=== PATIENT | female | born 1990 | race African-American/Black ===

== ENCOUNTER 2016-10-31 08:17 | Emergency (ER) | payer MEDICAID ==
[~2016-10-31] VITALS: Ht 157.5 cm; Wt 100.0 kg
[~2016-10-31 08:17] MED LIST: ALBU6.7H INH; DEPO150I IM; IBUP600 PO
[2016-10-31 08:19] VITALS: BP 144/81; PULSE 66; RESP 20; TEMP 97.7; O2SAT 100
--- NOTE | 2016-10-31 08:47 | PD ---
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) Social History Alcohol Use: No Tobacco Use: No Substance Use: Yes (marijuana) Allergies-Medications (Allergen,Severity, Reaction): Coded Allergies: Bee Sting (Verified Allergy, Severe, HIVES, 05/22/16) Rainey (Verified Allergy, Severe, RASH, THROAT SWELLING, 05/22/16) Latex (Verified Allergy, Severe, UNKNOWN, 05/22/16) Penicillin (Verified Allergy, Severe, UNKNOWN, 05/22/16) Wheat (Verified Allergy, Severe, RASH, 05/22/16) Reported Meds & Prescriptions Reported Meds & Active Scripts Active Motrin 600 Mg Tab (Ibuprofen) 600 Mg Tab 600 Mg PO Q6H PRN Depo-Provera Contraceptive (Medroxyprogesterone Acetate) 150 Mg/Ml Susp 150 Mg IM Q90D Proventil Hfa (Albuterol Sulfate) 6.7 Gm Aero 2 Puff INH Q6 * SHAKE WELL BEFORE USE * Data Data Last Documented VS Vital Signs Date Time Temp Pulse Resp B/P Pulse Ox O2 Delivery O2 Flow Rate FiO2 10/31/16 08:19 97.7 66 20 144/81 100 Room Air Ana Ashton Oct 31, 2016 08:47
--- NOTE | 2016-10-31 08:59 | PD ---
HPI Chief Complaint: Pain: Acute or Chronic Time Seen by Provider: 08:54 Travel History International Travel<30 days: No Contact w/Intl Traveler<30days: No Traveled to known affect area: No History of Present Illness HPI 26-year-old female presents to the emergency Department with complaint of right hip and right groin pain 3 days. Denies injury, straining, heavy lifting. Pain is worse when standing for a long time period that she was standing at the [employer] doing her work the other day and the pain was increasing. She denies pain at this time. Has not taken any medications or tried any treatments to relieve her symptoms. Denies paresthesias, loss of sensation, decreased range of motion, decreased strength to affected extremity. Denies fever, chills, nausea, vomiting. Allergies to bee sting, Rainey, latex, penicillin, wheat. Denies significant past medical history. No other modifying factors or associated signs and symptoms. History Past Medical Histgory LMP: OCTOBER 2016 Social History Alcohol Use: No Tobacco Use: No Allergies-Medications (Allergen,Severity, Reaction): Coded Allergies: Bee Sting (Verified Allergy, Severe, HIVES, 10/31/16) Rainey (Verified Allergy, Severe, RASH, THROAT SWELLING, 10/31/16) Latex (Verified Allergy, Severe, UNKNOWN, 10/31/16) Penicillin (Verified Allergy, Severe, UNKNOWN, 10/31/16) Wheat (Verified Allergy, Severe, RASH, 10/31/16) Reported Meds & Prescriptions Reported Meds & Active Scripts Active Review of Systems Except as stated in HPI: all other systems reviewed are Neg Physical Exam Narrative GENERAL: Well-nourished, well-developed female patient, in no acute distress; afebrile, nontoxic-appearing SKIN: Warm and dry. HEAD: Atraumatic. Normocephalic. EYES: Pupils equal and round. No scleral icterus. No injection or drainage. ENT: Mucosa pink and moist. Airway patent. NECK: Trachea midline. CARDIOVASCULAR: Regular rate. RESPIRATORY: No accessory muscle use. MUSCULOSKELETAL: Right hip with full range of motion; no erythema, edema, ecchymosis. No tenderness on abduction of the right hip. No Tenderness on palpation to the right hip or right groin area. No leg length discrepancy. Patient is ambulatory with a normal gait. Right lower extremity is supple and non-tense with 2+ pedal pulse and sensory intact and without erythema or edema. No cyanosis. No clubbing. No obvious deformities. NEUROLOGICAL: Awake and alert. Oriented 3. No obvious cranial nerve deficits. Motor grossly within normal limits. Normal speech. PSYCHIATRIC: Appropriate mood and affect; insight and judgment normal. Data Data Last Documented VS Vital Signs Date Time Temp Pulse Resp B/P Pulse Ox O2 Delivery O2 Flow Rate FiO2 10/31/16 08:19 97.7 66 20 144/81 100 Room Air [facility] Medical Screen Exam Complete: Yes Emergency Medical Condition: No Differential Diagnosis Hip pain, groin strain, medical clearance Narrative Course 26-year-old female with right hip pain/groin pain 3 days. No known injuries. Denies pain at this time. The right hip is with full range of motion and without tenderness on abduction. No leg length discrepancy. Right lower extremity is supple and non-tense with 2+ pedal pulses and sensory intact. Patient is ambulatory with a normal gait. Physical exam is unremarkable. Vital signs are stable and the patient is stable for outpatient follow-up and treatment. The patient has no urgent or emergent medical complaints. There is no emergent or urgent medical need at this time. I instructed the patient to follow up with their primary care provider. A medical screening exam was performed: At the time of evaluation the presenting medical condition was determined not to be of an emergent nature. The patient was given the option of receiving additional care, but declined. Patient was given options for additional community resources from which to obtain care. The Patient Has Been advised to seek medical attention for their presenting complaint. The patient has been advised to return to the ER at any time if an emergent condition develops. Primary Impression: Encounter for medical screening examination Condition: Stable Ana Ashton Oct 31, 2016 08:59 Condition: Stable Ana Ashton Oct 31, 2016 08:59
== END 2016-10-31 09:05 | disposition left against medical advice (07) ==
LOC: NEPB 08:17
DX: M25.551 Pain in right hip (principal)
CPT/HCPCS: 99281

== ENCOUNTER 2017-01-08 10:09 | Emergency (ER) | payer MEDICAID ==
[~2017-01-08] VITALS: Ht 157.5 cm; Wt 91.0 kg
[2017-01-08 10:12] VITALS: BP 132/85; PULSE 87; RESP 17; TEMP 97.8; O2SAT 98
--- NOTE | 2017-01-08 10:17 | PD ---
HPI . muscle spasm Chief Complaint: Back/ Neck Pain or Injury Time Seen by Provider: 10:17 Travel History International Travel<30 days: No Contact w/Intl Traveler<30days: No Traveled to known affect area: No History of Present Illness HPI 26-year-old female here with complaints of chronic back pain. Patient tells me that she has muscle spasms and is making it difficult to play with her 5 children. She reports chronic issues with her back and tells me that she was told she would need surgery. However she decided against surgical recommendations. She is here requesting medications for muscle spasms. She had a primary care provider in [place], but has been unable to follow up due to transportation issues. She denies any bowel or bladder dysfunction. She denies any saddle anesthesia. 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) Social History Alcohol Use: No Tobacco Use: No Substance Use: Yes (marijuana) Allergies-Medications (Allergen,Severity, Reaction): Coded Allergies: Bee Sting (Verified Allergy, Severe, HIVES, 01/08/17) Rainey (Verified Allergy, Severe, RASH, THROAT SWELLING, 01/08/17) Latex (Verified Allergy, Severe, UNKNOWN, 01/08/17) Penicillin (Verified Allergy, Severe, UNKNOWN, 01/08/17) Wheat (Verified Allergy, Severe, RASH, 01/08/17) Reported Meds & Prescriptions Reported Meds & Active Scripts Active Flexeril (Cyclobenzaprine HCl) 5 Mg Tab 5 Mg PO TID Review of Systems General / Constitutional: No: Fever Eyes: No: Visual changes HENT: No: Headaches Cardiovascular: No: Chest Pain or Discomfort Respiratory: No: Shortness of Breath Gastrointestinal: No: Abdominal Pain Genitourinary: No: Dysuria Musculoskeletal: Positive: Other (muscle spasm lower back), No: Pain Skin: No Rash Neurologic: No: Weakness Psychiatric: No: Depression Endocrine: No: Polydipsia Hematologic/Lymphatic: No: Easy Bruising Physical Exam Narrative GENERAL: AAO x 3, no acute distress, Well-nourished, well-developed patient. SKIN: Warm and dry. No visible rashes or bruising. HEAD: Normocephalic and atraumatic. EYES: No scleral icterus. No injection or drainage. ENT: No nasal drainage noted. Mucous membranes pink. Airway patent. NECK: Supple, trachea midline. No JVD. CARDIOVASCULAR: Regular rate and rhythm without murmurs, gallops, or rubs. RESPIRATORY: Breath sounds equal bilaterally. No accessory muscle use. No rhonchi or rales. GASTROINTESTINAL: Abdomen soft, non-tender, nondistended. EXTREMITIES: No cyanosis or edema. hips are stable. gait is ataxic from pain, but patient is ambulatory without any significant instability BACK: Nontender without obvious deformity. No CVA tenderness., paraspinal muscle tenderness. PSYCH: AAO x 3, normal affect. Data Data Last Documented VS Vital Signs Date Time Temp Pulse Resp B/P Pulse Ox O2 Delivery O2 Flow Rate FiO2 01/08/17 10:12 97.8 87 17 132/85 98 MDM Medical Decision Making Medical Screen Exam Complete: Yes Emergency Medical Condition: Yes Medical Record Reviewed: Yes Differential Diagnosis Muscle spasm, acute on chronic back pain, less likely lumbar radiculopathy Narrative Course 26-year-old female here with complaints of chronic back pain. Patient tells me that she has muscle spasms and is making it difficult to play with her 5 children. She reports chronic issues with her back and tells me that she was told she would need surgery. However she decided against surgical recommendations. She is here requesting medications for muscle spasms. She had a primary care provider in [place], but has been unable to follow up due to transportation issues. She denies any bowel or bladder dysfunction. She denies any saddle anesthesia. Diagnosis Primary Impression: Muscle spasm Patient Instructions: General Instructions, Muscle Spasm (ED) Additional Instructions: Please return to emergency department if your symptoms return or worsen. Follow up with your primary care provider. Take medications as prescribed. Muscle relaxers can cause drowsiness. Do not drive, swim or operate heavy machinery while using these medications. Med/Other Pt SpecificInfo: Prescription(s) given Scripts Cyclobenzaprine (Flexeril)5 Mg Tab5 Mg PO TID #30 TAB Ref 0 Prov:Chetan North MD 01/08/17 Disposition: 01 DISCHARGE HOME Condition: Stable Gertrude Pierce Jan 08, 2017 10:17
[2017-01-08] MEDS ORDERED: CYCL5TAB PO (10:24)
== END 2017-01-08 10:51 | disposition home or self-care (01) ==
LOC: NEPK 10:09
DX: M62.830 Muscle spasm of back (principal); G89.29 Other chronic pain; Z86.79 Personal history of other diseases of the circulatory system; Z87.01 Personal history of pneumonia (recurrent)
CPT/HCPCS: 99283

== ENCOUNTER 2017-02-04 07:43 | Emergency (ER) | payer MEDICAID ==
[~2017-02-04] VITALS: Ht 160 cm; Wt 92.0 kg
[~2017-02-04 07:43] MED LIST changes: -ALBU6.7H INH; +CYCL5TAB PO; -DEPO150I IM; -IBUP600 PO
[2017-02-04 07:45] VITALS: BP 144/74; PULSE 74; RESP 16; TEMP 98.3; O2SAT 98
--- NOTE | 2017-02-04 07:55 | PD ---
HPI . b/l arm pit rash x 2 weeks and possible rise on buttocks x 3 days Chief Complaint: Skin Problem Time Seen by Provider: 07:55 Travel History International Travel<30 days: No Contact w/Intl Traveler<30days: No Traveled to known affect area: No History of Present Illness HPI 26 yr old female here with c/o b/l axilla rash for about 2 weeks. Patient says she allowed someone else to use her deodorant and this caused her rash. It has happened to her in the past. She says the area is swollen and tender to touch. She says she sometimes sees a slight drainage and foul odor. The drainage is not present today. She also reports what she believes is a rise on her buttocks. She says she has had hemorrhoids in the past, but she was told by her significant other that this is an abscess. She denies any fever or chills. She has no other complaints. 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) Social History Alcohol Use: No Tobacco Use: No Substance Use: Yes (marijuana) Allergies-Medications (Allergen,Severity, Reaction): Coded Allergies: Bee Sting (Verified Allergy, Severe, HIVES, 02/04/17) Rainey (Verified Allergy, Severe, RASH, THROAT SWELLING, 02/04/17) Latex (Verified Allergy, Severe, UNKNOWN, 02/04/17) Penicillin (Verified Allergy, Severe, UNKNOWN, 02/04/17) Wheat (Verified Allergy, Severe, RASH, 02/04/17) Reported Meds & Prescriptions Reported Meds & Active Scripts Active Medrol Dosepak (Methylprednisolone) 4 Mg Dspk 4 Mg PO DIRECTED Per Pharmacist direction Ibuprofen 800 Mg Tab 800 Mg PO TID Bactrim DS (Sulfamethoxazole-Trimethoprim) 800-160 Mg Tab 1 Tab PO BID Flexeril (Cyclobenzaprine HCl) 5 Mg Tab 5 Mg PO TID Review of Systems General / Constitutional: No: Fever Eyes: No: Visual changes HENT: No: Headaches Cardiovascular: No: Chest Pain or Discomfort Respiratory: No: Shortness of Breath Gastrointestinal: No: Abdominal Pain Genitourinary: No: Dysuria Musculoskeletal: No: Pain Skin: Positive Rash, Positive Itching, Positive Other (buttocks swelling/ armpit swelling) Neurologic: No: Weakness Psychiatric: No: Depression Endocrine: No: Polydipsia Hematologic/Lymphatic: No: Easy Bruising Physical Exam Narrative GENERAL: AAO x 3, no acute distress, Well-nourished, well-developed patient. SKIN: Warm and dry. No visible rashes or bruising. Bilateral axilla minimally swollen, no visible abscess formation or drainage present. No visible rash. HEAD: Normocephalic and atraumatic. EYES: No scleral icterus. No injection or drainage. ENT: No nasal drainage noted. Airway patent. NECK: Supple, trachea midline. No JVD. CARDIOVASCULAR: Regular rate and rhythm without murmurs, gallops, or rubs. RESPIRATORY: Breath sounds equal bilaterally. No accessory muscle use. No rhonchi or rales. GASTROINTESTINAL: Visual inspection normal RECTAL: Lorena PRUETT present: Very minimally thrombosed external hemorrhoid near anus. No evidence of abscess or cellulitis. EXTREMITIES: No cyanosis or edema. BACK: Nontender without obvious deformity. No CVA tenderness. PSYCH: AAO x 3, normal affect. Data Data Last Documented VS Vital Signs Date Time Temp Pulse Resp B/P Pulse Ox O2 Delivery O2 Flow Rate FiO2 02/04/17 07:45 98.3 74 16 144/74 98 MDM Medical Decision Making Medical Screen Exam Complete: Yes Emergency Medical Condition: Yes Medical Record Reviewed: Yes Differential Diagnosis hidradenitis suppurativa, cellulitis, thrombosed hemorrhoid, less likely abscess Narrative Course 26 yr old female here with c/o b/l axilla rash for about 2 weeks. Patient says she allowed someone else to use her deodorant and this caused her rash. It has happened to her in the past. She says the area is swollen and tender to touch. She says she sometimes sees a slight drainage and foul odor. The drainage is not present today. She also reports what she believes is a rise on her buttocks. She says she has had hemorrhoids in the past, but she was told by her significant other that this is an abscess. She denies any fever or chills. She has no other complaints. Patient seen and examined. She appears to have very mild hidradenitis suppurative. She also has an minimally thrombosed external hemorrhoid. I recommend a short course of antibiotics for her very mild cellulitis/ hidradenitis suppurative. I explained to her that she will need to see her PCP for further recommendations to a recycling attendant/surgeon as this is often a surgical issues. I also recommend preparation H for her hemorrhoid as it is very mild. She can f/ u with colo-rectal for further recommendations or too see if the area will need to be lanced in the future. I provided her with a course of steroids as she admitted to some itching and thinks this all started after the deodorant situation. Patient verbalized understanding of instructions, questions were answered, and thanked me for their care. I advised them if their condition worsens, please return to the nearest emergency room for further care. Diagnosis Primary Impression: Hidradenitis suppurativa Additional Impressions: Hemorrhoid thrombosis Contact dermatitis Qualified Code: L25.9 - Contact dermatitis, unspecified contact dermatitis type, unspecified trigger Referrals: Colon Rectal Specialist [employer] Patient Instructions: Cellulitis (ED), General Instructions Additional Instructions: Please return to emergency department if your symptoms return or worsen. Follow up with your primary care provider. Take medications as prescribed. Please follow-up with her primary care provider so they could provide referrals to the specialist we have discussed. Try over the counter Preparation H to the hemorrhoid to see if it helps relieve the pain and swelling. Med/Other Pt SpecificInfo: Prescription(s) given Scripts Methylprednisolone Dosepak (Medrol Dosepak)4 Mg Dspk4 Mg PO DIRECTED #1 DSPK Ref 0 Per Pharmacist direction Prov:Rivka Wood MD 02/04/17 Ibuprofen 800 Mg [id number] Mg PO TID #21 TAB Prov:Rivka Wood MD 02/04/17 Sulfamethoxazole-Trimethoprim (Bactrim DS)800-160 Mg Tab1 Tab PO BID #20 TAB Prov:Rivka Wood MD 02/04/17 Disposition: 01 DISCHARGE HOME Condition: Stable Gertrude Pierce February 04, 2017 07:55
[2017-02-04] MEDS ORDERED: BACT800T5 PO (07:59)
[2017-02-04] MEDS ORDERED: IBUP800T23 PO (07:59)
[2017-02-04] MEDS ORDERED: MEDR4PAK PO (08:03)
== END 2017-02-04 08:20 | disposition home or self-care (01) ==
LOC: NEPK 07:43
DX: L73.2 Hidradenitis suppurativa (principal); K64.5 Perianal venous thrombosis; L25.9 Unspecified contact dermatitis, unspecified cause
CPT/HCPCS: 99282

== ENCOUNTER 2017-03-09 06:43 | Emergency (ER) | payer MEDICAID ==
[~2017-03-09] VITALS: Ht 160 cm; Wt 82.0 kg
[~2017-03-09 06:43] MED LIST changes: +BACT800T5 PO; +IBUP800T23 PO; +MEDR4PAK PO
[2017-03-09 06:45] VITALS: BP 129/77; PULSE 66; RESP 16; TEMP 98.9; O2SAT 100
[2017-03-09 07:58] VITALS: BP 119/75; PULSE 67; RESP 14; O2SAT 100
[2017-03-09] MEDS ORDERED: SODIUM CHLORIDE 0.9% FLUSH 10 ML FLUSH IVF PRN (08:00)
[2017-03-09] MEDS ORDERED: SODIUM CHLOR 0.9% 1000 ML INJ 1,000 ML IV ONE (08:00)
[2017-03-09] MEDS ORDERED: KETOROLAC TROMETHAMINE 30 MG/ML (IVP) VIAL IV PUSH ONE (08:00)
--- NOTE | 2017-03-09 08:02 | PD ---
HPI Chief Complaint: Chest Pain Time Seen by Provider: 07:34 Travel History International Travel<30 days: No Contact w/Intl Traveler<30days: No Traveled to known affect area: No History of Present Illness HPI Patient is a 26-year-old female with history of asthma, migraines and "heart murmurs ", who presents to emergency room with complaints of chest pain. Patient reports that she woke up at 3 AM to go to surgery get diapers for 10- month-old child. She reports that she began to have sharp and stabbing pains to her epigastrium, reports that pain is exacerbated by sitting up. Reports no diaphoresis or shortness of breath with symptoms. Patient with no nausea or vomiting, reports that she has had similar symptoms in the past which usually resolves on its own. Patient reports no family history of early coronary disease or PR. Patient also reports that she is exhausted, reports that she has had a headache similar to her previous migraine headaches in the past. Patient reports that she is taking care of her 5 children and doesn't get enough sleep. Reports no vision changes, reports a sharp and stabbing sensation to the front of her head similar to her typical migraines. Patient with no fevers or chills, no other complaints at this time. PFSH Past Medical History Asthma: Yes Cardiovascular Problems: Yes (MURMUR) Diminished Hearing: No Immunizations Current: Yes Pneumonia: Yes Tetanus Vaccination: Unknown ?: Unknown : 5 Para: 5 Miscarriage: 0 : 0 Past Surgical History Eye Surgery: Yes Other Surgery: Yes (KELOIDS REMOVED EYE AND VAGINA) Family History Family History: Negative Social History Alcohol Use: No Tobacco Use: No Substance Use: Yes (THC) Allergies-Medications (Allergen,Severity, Reaction): Coded Allergies: Bee Sting (Verified Allergy, Severe, HIVES, 03/09/17) Rainey (Verified Allergy, Severe, RASH, THROAT SWELLING, 03/09/17) Latex (Verified Allergy, Severe, UNKNOWN, 03/09/17) Penicillin (Verified Allergy, Severe, UNKNOWN, 03/09/17) Wheat (Verified Allergy, Severe, RASH, 03/09/17) Reported Meds & Prescriptions Reported Meds & Active Scripts Active No Active Prescriptions or Reported Medications Review of Systems General / Constitutional: No: Fever Eyes: No: Visual changes HENT: Positive: Headaches Cardiovascular: Positive: Chest Pain or Discomfort, No: Palpitations, Tachycardia, Diaphoresis Respiratory: No: Shortness of Breath Gastrointestinal: No: Abdominal Pain Genitourinary: No: Dysuria Musculoskeletal: No: Pain Skin: No Rash Neurologic: No: Weakness Psychiatric: No: Depression Endocrine: No: Polydipsia Hematologic/Lymphatic: No: Easy Bruising Physical Exam Narrative GENERAL: No acute distress, nontoxic SKIN: Focused skin assessment warm/dry. HEAD: Atraumatic. Normocephalic. EYES: Pupils equal and round. No scleral icterus. No injection or drainage. ENT: No nasal bleeding or discharge. Mucous membranes pink and moist. NECK: Trachea midline. No JVD. CARDIOVASCULAR: Regular rate and rhythm. No murmur appreciated. RESPIRATORY: No accessory muscle use. Clear to auscultation. Breath sounds equal bilaterally. GASTROINTESTINAL: Abdomen soft, non-tender, nondistended. Hepatic and splenic margins not palpable. MUSCULOSKELETAL: No obvious deformities. No clubbing. No cyanosis. No edema. NEUROLOGICAL: Awake and alert. No obvious cranial nerve deficits. Motor grossly within normal limits. Normal speech. Cranial nerves II-12 grossly intact with no neurological deficits PSYCHIATRIC: Appropriate mood and affect; insight and judgment normal. Data Data Last Documented VS Vital Signs Date Time Temp Pulse Resp B/P Pulse Ox O2 Delivery O2 Flow Rate FiO2 03/09/17 07:58 67 14 119/75 100 Room Air 03/09/17 06:45 98.9 Orders Ckmb (Isoenzyme) Profile (03/09/17 07:48) Complete Blood Count With Diff (03/09/17 07:48) Comprehensive Metabolic Panel (03/09/17 07:48) D-Dimer (03/09/17 07:48) Magnesium (Mg) (03/09/17 07:48) Prothrombin Time / Inr (Pt) (03/09/17 07:48) Act Partial Throm Time (Ptt) (03/09/17 07:48) Troponin I (03/09/17 07:48) Chest, Single Ap (03/09/17 07:48) Ecg Monitoring (03/09/17 07:48) Iv Access Insert/Monitor (03/09/17 07:48) Oximetry (03/09/17 07:48) Sodium Chloride 0.9% Flush (Ns Flush) (03/09/17 08:00) Ketorolac Inj (Toradol Inj) (03/09/17 08:00) Sodium Chlor 0.9% 1000 Ml Inj (Ns 1000 M (03/09/17 08:00) CKMB (03/09/17 07:45) CKMB% (03/09/17 07:45) Labs Laboratory Tests Test 03/09/17 07:45 White Blood Count 5.9 TH/MM3 Red Blood Count 4.61 MIL/MM3 Hemoglobin 12.6 GM/DL Hematocrit 37.9 % Mean Corpuscular Volume 82.3 FL Mean Corpuscular Hemoglobin 27.4 PG Mean Corpuscular Hemoglobin 33.3 % Concent Red Cell Distribution Width 15.4 % Platelet Count 310 TH/MM3 Mean Platelet Volume 8.1 FL Neutrophils (%) (Auto) 52.1 % Lymphocytes (%) (Auto) 35.9 % Monocytes (%) (Auto) 6.9 % Eosinophils (%) (Auto) 4.3 % Basophils (%) (Auto) 0.8 % Neutrophils # (Auto) 3.1 TH/MM3 Lymphocytes # (Auto) 2.1 TH/MM3 Monocytes # (Auto) 0.4 TH/MM3 Eosinophils # (Auto) 0.3 TH/MM3 Basophils # (Auto) 0.1 TH/MM3 CBC Comment DIFF FINAL Differential Comment Prothrombin Time 10.3 SEC Prothromb Time International 0.9 RATIO Ratio Activated Partial 26.7 SEC Thromboplast Time D-Dimer Quantitative (PE/DVT) 0.29 MG/L FEU Sodium Level 141 MEQ/L Potassium Level 4.2 MEQ/L Chloride Level 109 MEQ/L Carbon Dioxide Level 23.3 MEQ/L Anion Gap 9 MEQ/L Blood Urea Nitrogen 8 MG/DL Creatinine 0.96 MG/DL Estimat Glomerular Filtration 85 ML/MIN Rate Random Glucose 96 MG/DL Calcium Level 8.6 MG/DL Magnesium Level 2.0 MG/DL Total Bilirubin 0.2 MG/DL Aspartate Amino Transf 12 U/L (AST/SGOT) Alanine Aminotransferase 31 U/L (ALT/SGPT) Alkaline Phosphatase 64 U/L Total Creatine Kinase 161 U/L Creatine Kinase MB 0.5 NG/ML Troponin I LESS THAN 0.02 NG/ML Total Protein 7.0 GM/DL Albumin 3.4 GM/DL MDM Medical Decision Making Medical Screen Exam Complete: Yes Emergency Medical Condition: Yes Interpretation(s) EKG at 0746: Normal sinus rhythm at 65 beats for minute, QT/QTc 355/366, and a bilirubin of branch block, T-wave inversions in V1 and V2, 3 and aVF Vital Signs Date Time Temp Pulse Resp B/P Pulse Ox O2 Delivery O2 Flow Rate FiO2 03/09/17 07:30 63 14 100 Room Air 03/09/17 06:45 98.9 66 16 129/77 100 Differential Diagnosis Pericarditis, endocarditis, pulmonary embolism, costochondritis, migraine headache, electrolyte abnormality Narrative Course 26-year-old female who presents to emergency with multiple complaints. Patient reports that around 3 AM, she has been having sharp and stabbing pains to her chest. Patient was placed on a threat monitoring analyst upon arrival to emergency room, EKG was obtained. Patient with no acute ST segment changes on EKG, her chest pain is atypical in nature. Plan to obtain lab work including one set of cardiac enzymes to rule out possible infectious etiology for chest pain including but not limited to endocarditis or pericarditis, it was not ordered to rule out ACS. X-ray chest also ordered to evaluate for symptoms. As per patient's typical migraine headache and fatigue, and has a normal neurological exam at this time, plan to give Toradol which could treat her chest pain as well as her migraine headache. Fatigue could be due from lack of sleep as she is caring for 5 children and admits to having no time to sleep. Will check electrolytes. Will observe patient this time. Vital Signs Date Time Temp Pulse Resp B/P Pulse Ox O2 Delivery O2 Flow Rate FiO2 03/09/17 07:58 67 14 119/75 100 Room Air 03/09/17 07:30 63 14 100 Room Air 03/09/17 06:45 98.9 66 16 129/77 100 Laboratory Tests Test 03/09/17 07:45 White Blood Count 5.9 TH/MM3 (4.0-11.0) Red Blood Count 4.61 MIL/MM3 (4.00-5.30) Hemoglobin 12.6 GM/DL (11.6-15.3) Hematocrit 37.9 % (35.0-46.0) Mean Corpuscular Volume 82.3 FL (80.0-100.0) Mean Corpuscular Hemoglobin 27.4 PG (27.0-34.0) Mean Corpuscular Hemoglobin 33.3 % Concent (32.0-36.0) Red Cell Distribution Width 15.4 % (11.6-17.2) Platelet Count 310 TH/MM3 (150-450) Mean Platelet Volume 8.1 FL (7.0-11.0) Neutrophils (%) (Auto) 52.1 % (16.0-70.0) Lymphocytes (%) (Auto) 35.9 % (9.0-44.0) Monocytes (%) (Auto) 6.9 % (0.0-8.0) Eosinophils (%) (Auto) 4.3 % (0.0-4.0) Basophils (%) (Auto) 0.8 % (0.0-2.0) Neutrophils # (Auto) 3.1 TH/MM3 (1.8-7.7) Lymphocytes # (Auto) 2.1 TH/MM3 (1.0-4.8) Monocytes # (Auto) 0.4 TH/MM3 (0-0.9) Eosinophils # (Auto) 0.3 TH/MM3 (0-0.4) Basophils # (Auto) 0.1 TH/MM3 (0-0.2) CBC Comment DIFF FINAL Differential Comment Prothrombin Time 10.3 SEC (9.8-11.6) Prothromb Time International 0.9 RATIO Ratio Activated Partial 26.7 SEC Thromboplast Time (24.3-30.1) D-Dimer Quantitative (PE/DVT) 0.29 MG/L FEU (0.00-0.50) Sodium Level 141 MEQ/L (136-145) Potassium Level 4.2 MEQ/L (3.5-5.1) Chloride Level 109 MEQ/L (98-107) Carbon Dioxide Level 23.3 MEQ/L (21.0-32.0) Anion Gap 9 MEQ/L (5-15) Blood Urea Nitrogen 8 MG/DL (7-18) Creatinine 0.96 MG/DL (0.50-1.00) Estimat Glomerular Filtration 85 ML/MIN (>89) Rate Random Glucose 96 MG/DL (74-106) Calcium Level 8.6 MG/DL (8.5-10.1) Magnesium Level 2.0 MG/DL (1.5-2.5) Total Bilirubin 0.2 MG/DL (0.2-1.0) Aspartate Amino Transf 12 U/L (15-37) (AST/SGOT) Alanine Aminotransferase 31 U/L (10-53) (ALT/SGPT) Alkaline Phosphatase 64 U/L (45-117) Total Creatine Kinase 161 U/L (26-192) Creatine Kinase MB 0.5 NG/ML (0.5-3.6) Troponin I LESS THAN 0.02 NG/ML (0.02-0.05) Total Protein 7.0 GM/DL (6.4-8.2) Albumin 3.4 GM/DL (3.4-5.0) Last Impressions Chest X-Ray 03/09/17 0750 Signed Impressions: Service Date/Time: Thursday, March 09, 2017 07:57 - CONCLUSION: 1. Cardiomegaly. Echo to exclude ASD would be warranted. 2. The lungs are clear. Elier Barraza MD Patient reevaluated, patient anxious to be discharged home. Patient reports that she is feeling much better at this time and go home to check on her children. Patient reports complete resolution of her headache and chest pain. I did review x-ray results as well as laboratory results with patient in detail. Patient understands need to follow up with steel die printer for outpatient cardiac workup including but not limited to echocardiogram. Patient was give a copy of her xray result. Patient will return to ER as needed. Diagnosis Primary Impression: Chest pain Qualified Code: R07.9 - Chest pain, unspecified type Additional Impression: Migraine Qualified Code: G43.909 - Migraine without status migrainosus, not intractable , unspecified migraine type Referrals: Karlo Lam MD Patient Instructions: General Instructions Additional Instructions: Please follow-up with a steel die printer as soon as possible, bring your x-ray report to your doctor's office, you will need an echocardiogram of your heart as outpatient Return to the emergency medicine needed or if symptoms return Please follow-up with your primary care doctor in 2-3 days Scripts No Active Prescriptions or Reported Meds Disposition: 01 DISCHARGE HOME Condition: Stable Génesis Hernandez Mar 09, 2017 08:02
[2017-03-09 08:08] LABS: AUTOMATED NEUTROPHIL # 3.1 TH/MM3 (1.8-7.7); BASOPHIL # 0.1 TH/MM3 (0-0.2); BASOPHIL % 0.8 % (0.0-2.0); EOSINOPHIL # 0.3 TH/MM3 (0-0.4); EOSINOPHIL % 4.3 % (0.0-4.0); HEMATOCRIT 37.9 % (35.0-46.0); HEMO FLAGS DIFF FINAL; LYMPH % 35.9 % (9.0-44.0); LYMPHOCYTE # 2.1 TH/MM3 (1.0-4.8); MEAN CELL VOLUME 82.3 FL (80.0-100.0); MEAN CORPUSCULAR HEMOGLOBIN 27.4 PG (27.0-34.0); MEAN CORPUSCULAR HGB CONC 33.3 % (32.0-36.0); MONO % 6.9 % (0.0-8.0); NEUT % 52.1 % (16.0-70.0); PLATELET COUNT 310 TH/MM3 (150-450); RED BLOOD COUNT 4.61 MIL/MM3 (4.00-5.30); RED CELL DISTRIBUTION WIDTH 15.4 % (11.6-17.2); WHITE BLOOD COUNT 5.9 TH/MM3 (4.0-11.0)
[2017-03-09 08:22] LABS: APTT (PATIENT) 26.7 SEC (24.3-30.1); INTERNATIONAL NORMALIZED RATIO 0.9 RATIO; PROTHROMBIN TIME - PATIENT 10.3 SEC (9.8-11.6)
[2017-03-09 08:30] LABS: ALT (GPT) 31 U/L (10-53); ANION GAP 9 MEQ/L (5-15); AST (GOT) 12 U/L (15-37); BICARBONATE 23.3 MEQ/L (21.0-32.0); BLOOD UREA NITROGEN 8 MG/DL (7-18); CHLORIDE 109 MEQ/L (98-107); GLOMERULAR FILTRATION RATE 85 ML/MIN (>89); POTASSIUM 4.2 MEQ/L (3.5-5.1); SODIUM (NA) 141 MEQ/L (136-145)
[2017-03-09 08:34] LABS: ALKALINE PHOSPHATASE 64 U/L (45-117); CREATINE KINASE 161 U/L (26-192); TOTAL BILIRUBIN ADULT 0.2 MG/DL (0.2-1.0)
--- NOTE | 2017-03-09 08:38 | RADRPT ---
EXAM DATE/TIME: 03/09/2017 07:57 [facility] COMPARISON: HAND RIGHT COMPLETE ([id number]), August 16, 2015, 16:13. INDICATIONS : Chest pain. MEDICAL HISTORY : Heart murmur. SURGICAL HISTORY : None. ENCOUNTER: Initial ACUITY: 1 day PAIN SCORE: 5/10 LOCATION: Bilateral chest FINDINGS: Single view of the chest is provided. The heart appears enlarged. There is no congestive failure. Ech o to exclude ASD would be warranted. The lungs are clear. The bony structures are intact. CONCLUSION: 1. Cardiomegaly. Echo to exclude ASD would be warranted. 2. The lungs are clear. Elier Barraza MD on March 09, 2017 at 8:35 Board Certified Radiologist. This report was verified electronically.
[2017-03-09 08:48] LABS: CKMB 0.5 NG/ML (0.5-3.6)
[2017-03-09 09:10] VITALS: RESP 14
[2017-03-09 09:54] VITALS: BP 100/65
--- NOTE | 2017-03-09 21:55 | EKG ---
Date Performed: 03/09/2017 Time Performed: 07:46:30 PTAGE: 26 years EKG: Sinus rhythm WITH SINUS ARRHYTHMIA INCOMPLETE RIGHT BUNDLE BRANCH BLOCK NONSPECIFIC T-WAVE ABNORMALITY Since prev ious tracing, no significant change noted BORDERLINE ECG PREVIOUS TRACING : 03/26/2009 05.11 DOCTOR: Antoinette Rodriguez Interpretating Date/Time 03/09/2017 21:53:45
== END 2017-03-09 09:56 | disposition home or self-care (01) ==
LOC: NEPE 06:43
DX: R07.9 Chest pain, unspecified (principal); G43.909 Migraine, unspecified, not intractable, without status migrainosus; I51.7 Cardiomegaly; R53.83 Other fatigue; I45.10 Unspecified right bundle-branch block; I49.8 Other specified cardiac arrhythmias; R01.1 Cardiac murmur, unspecified
CPT/HCPCS: 71010; 80053; 82550; 82552; 83735; 84484; 85025; 85379; 85610; 85730; 93005; 96361; 96374; 99284; J1885; J7030

== ENCOUNTER 2017-08-13 18:34 | Emergency (ER) | payer MEDICAID ==
[~2017-08-13] VITALS: Ht 160 cm; Wt 82.0 kg
[2017-08-13 18:36] VITALS: BP 124/85; PULSE 80; RESP 13; TEMP 98.6; O2SAT 100
[2017-08-13 20:16] VITALS: BP 135/91; PULSE 82; RESP 18; O2SAT 99
--- NOTE | 2017-08-13 20:46 | PD ---
HPI Chief Complaint: Information Services Consultant Problem/Complaint Time Seen by Provider: 20:42 Travel History International Travel<30 days: No Contact w/Intl Traveler<30days: No Traveled to known affect area: No History of Present Illness HPI 26-year-old female that presents to the ED for evaluation of vaginal bleeding for the past 3 weeks. Per patient she's had clotting and vaginal bleeding for the past 3 weeks. She gets to push lots. She is unsure as to when his last shot she had blood per patient she started having them since April after having her fifth child. She denies any at this time. She states having some abdominal cramping but not at this time. She states that the bleeding has been excessive which is what was concerning for her. She denies any fevers chills or sweats. She has not seen her REPAIR MECHANIC. Denies any bowel movement or urinary issues. Denies any surgeries to the abdomen. PFSH Past Medical History Asthma: Yes Cardiovascular Problems: Yes (MURMUR) Diminished Hearing: No Immunizations Current: Yes Pneumonia: Yes Tetanus Vaccination: Unknown Influenza Vaccination: No ?: Unknown : 5 Para: 5 Miscarriage: 0 : 0 Past Surgical History Eye Surgery: Yes (LEFT EYE) Other Surgery: Yes (KELOIDS REMOVED EYE AND VAGINA) Social History Alcohol Use: No Tobacco Use: No Substance Use: Yes (THC) Allergies-Medications (Allergen,Severity, Reaction): Coded Allergies: bee venom protein (honey bee) (Unverified Allergy, Severe, HIVES, 08/13/17 ) malcolm (Unverified Allergy, Severe, RASH, THROAT SWELLING, 08/13/17) latex (Unverified Allergy, Severe, UNKNOWN, 08/13/17) penicillin G (Unverified Allergy, Severe, UNKNOWN, 08/13/17) wheat (Unverified Allergy, Severe, RASH, 08/13/17) Reported Meds & Prescriptions Reported Meds & Active Scripts Active No Active Prescriptions or Reported Medications Review of Systems Except as stated in HPI: all other systems reviewed are Neg Physical Exam Narrative GENERAL: SKIN: Warm and dry. HEAD: Atraumatic. Normocephalic. EYES: Pupils equal and round. No scleral icterus. No injection or drainage. ENT: No nasal bleeding or discharge. Mucous membranes pink and moist. Tongue is midline. No uvula deviation. NECK: Trachea midline. No JVD. CARDIOVASCULAR: Regular rate and rhythm. No murmurs, S3, S4. RESPIRATORY: No accessory muscle use. Clear to auscultation. Breath sounds equal bilaterally. GASTROINTESTINAL: Abdomen soft, non-tender, nondistended. Hepatic and splenic margins not palpable. Pelvic exam: Done with female nurse present. Patient does have some slight vaginal bleeding as well as discharge. Vaginal wall appears to be somewhat atrophic but otherwise unremarkable. No masses or adnexal tenderness noted. MUSCULOSKELETAL: Extremities without clubbing, cyanosis, or edema. No obvious deformities. Full range of motion of the upper and lower extremities bilaterally. 2+ pulses bilaterally. NEUROLOGICAL: Awake and alert. No obvious cranial nerve deficits. Motor grossly within normal limits. Five out of 5 muscle strength in the arms and legs. Normal speech. PSYCHIATRIC: Appropriate mood and affect; insight and judgment normal. Data Data Last Documented VS Vital Signs Date Time Temp Pulse Resp B/P (MAP) Pulse Ox O2 Delivery O2 Flow Rate FiO2 08/13/17 20:16 82 18 135/91 (106) 99 Room Air 08/13/17 18:36 98.6 Orders Orders Complete Blood Count With Diff (08/13/17 20:22) Basic Metabolic Panel (Bmp) (08/13/17 20:22) Gc And Chlamydia Pcr (08/13/17 20:22) Wet Prep Profile (08/13/17 20:22) Urinalysis - C+S If Indicated (08/13/17 20:22) Ed Urine Pregnancytest Poc (08/13/17 20:22) Ed Discharge Order (08/13/17 22:12) Labs Laboratory Tests Test 08/13/17 20:35 08/13/17 20:42 Urine Color YELLOW Urine Turbidity CLEAR Urine pH 6.5 Urine Specific [place] 1.033 Urine Protein 30 mg/dL Urine Glucose (UA) NEG mg/dL Urine Ketones NEG mg/dL Urine Occult Blood TRACE Urine Nitrite NEG Urine Bilirubin NEG Urine Urobilinogen 2.0 MG/DL Urine Leukocyte Esterase TRACE Urine RBC 1 /hpf Urine WBC LESS THAN 1 /hpf Urine Squamous Epithelial Cells 1 /hpf Urine Mucus MOD /lpf Microscopic Urinalysis Comment CULT NOT INDICATED Clue Cells (Wet Prep) NONE SEEN Vaginal Trichomonas (Wet Prep) NONE SEEN Vaginal Yeast (Wet Prep) NONE SEEN White Blood Count 8.2 TH/MM3 Red Blood Count 4.78 MIL/MM3 Hemoglobin 12.8 GM/DL Hematocrit 39.4 % Mean Corpuscular Volume 82.5 FL Mean Corpuscular Hemoglobin 26.7 PG Mean Corpuscular Hemoglobin Concent 32.4 % Red Cell Distribution Width 15.1 % Platelet Count 340 TH/MM3 Mean Platelet Volume 7.9 FL Neutrophils (%) (Auto) 55.4 % Lymphocytes (%) (Auto) 32.8 % Monocytes (%) (Auto) 7.4 % Eosinophils (%) (Auto) 3.8 % Basophils (%) (Auto) 0.6 % Neutrophils # (Auto) 4.6 TH/MM3 Lymphocytes # (Auto) 2.7 TH/MM3 Monocytes # (Auto) 0.6 TH/MM3 Eosinophils # (Auto) 0.3 TH/MM3 Basophils # (Auto) 0.0 TH/MM3 CBC Comment DIFF FINAL Differential Comment Blood Urea Nitrogen 10 MG/DL Creatinine 1.01 MG/DL Random Glucose 95 MG/DL Calcium Level 8.8 MG/DL Sodium Level 140 MEQ/L Potassium Level 3.7 MEQ/L Chloride Level 107 MEQ/L Carbon Dioxide Level 24.7 MEQ/L Anion Gap 8 MEQ/L Estimat Glomerular Filtration Rate 80 ML/MIN MDM Medical Decision Making Medical Screen Exam Complete: Yes Emergency Medical Condition: Yes Medical Record Reviewed: Yes Interpretation(s) CBC & BMP Diagram 08/13/17 20:42 Calcium Level 8.8 UA shows leukerase esterase Differential Diagnosis Vaginal bleeding versus dysmenorrhea versus abnormal vaginal bleeding versus miscarriage versus vaginitis Narrative Course 26-year-old female that presents to the ED for evaluation of vaginal bleeding. Patient was properly examined and was found to have signs and symptoms consistent with what appears to be vaginal bleeding. Possible infection. Pelvic exam is benign. Do not see any sign of acute disease. Patient does state that she is a history of anemia and takes iron but she doesn't take it because it upsets her stomach. We'll do labs. Labs showed no sign of acute disease. labs negative. Exam is benign. At this time I recommend close follow- up with REPAIR MECHANIC for further evaluation. I have a suspicion to the patient is probably due for her next Depo-Provera shot. I discussed with her touch and is to follow-up with REPAIR MECHANIC outpatient for treatment of this. Patient agrees with this. Patient then had some signs of infection and urine with leukocyte esterase. We'll give Bactrim for this. Diagnosis Primary Impression: Vaginal bleeding, abnormal Additional Impression: UTI (urinary tract infection) Qualified Codes: N30.01 - Acute cystitis with hematuria Patient Instructions: General Instructions Additional Instructions: Take medication as prescribed. Follow with your REPAIR MECHANIC her PCP for further evaluation and for treatment as needed. Your labs here were essentially unremarkable. No sign of anemia or bleeding to . Continue using pads. You might be due to for your next DEPO shot so check with you doctor about this. See ED if worst. Med/Other Pt SpecificInfo: Prescription(s) given Scripts Sulfamethoxazole-Trimethoprim (Bactrim DS) 800-160 Mg Tab 1 TAB PO BID for Infection for 5 Days, #10 TAB 0 Refills Prov: Jimmy Boucher MD 08/13/17 Disposition: 01 DISCHARGE HOME Condition: Stable Roque Thompson Aug 13, 2017 20:46
[2017-08-13 21:09] LABS: AUTOMATED NEUTROPHIL # 4.6 TH/MM3 (1.8-7.7); BASOPHIL % 0.6 % (0.0-2.0); EOSINOPHIL # 0.3 TH/MM3 (0-0.4); EOSINOPHIL % 3.8 % (0.0-4.0); HEMATOCRIT 39.4 % (35.0-46.0); HEMO FLAGS DIFF FINAL; LYMPH % 32.8 % (9.0-44.0); LYMPHOCYTE # 2.7 TH/MM3 (1.0-4.8); MEAN CELL VOLUME 82.5 FL (80.0-100.0); MEAN CORPUSCULAR HEMOGLOBIN 26.7 PG (27.0-34.0); MEAN CORPUSCULAR HGB CONC 32.4 % (32.0-36.0); MONO % 7.4 % (0.0-8.0); NEUT % 55.4 % (16.0-70.0); PLATELET COUNT 340 TH/MM3 (150-450); RED BLOOD COUNT 4.78 MIL/MM3 (4.00-5.30); RED CELL DISTRIBUTION WIDTH 15.1 % (11.6-17.2); WHITE BLOOD COUNT 8.2 TH/MM3 (4.0-11.0)
[2017-08-13 21:16] LABS: BLOOD, URINE TRACE (NEG); COMMENT (UR) CULT NOT INDICATED; CULTURE IF INDICATED CULT NOT INDICATED; GLUCOSE,URINE NEG (NEG); KETONE, URINE NEG (NEG); MUCUS URINE MOD /lpf (OCC); NITRITE,URINE NEG (NEG); PH, URINE 6.5 (5.0-8.5); SQUAMOUS EPITHELIAL CELL URINE 1 /hpf (0-5); URINE COLOR YELLOW (YELLW/STRAW)
[2017-08-13 21:23] LABS: BICARBONATE 24.7 MEQ/L (21.0-32.0); POTASSIUM 3.7 MEQ/L (3.5-5.1)
[2017-08-13] MEDS ORDERED: BACT800T5 PO (22:15)
[2017-08-14] LABS: CHLAMYDIA PCR NOT DETECTED (NOT DETECT); NEISSERIA PCR NOT DETECTED (NOT DETECT)
== END 2017-08-13 22:32 | disposition home or self-care (01) ==
LOC: NEPE 18:34
DX: N93.9 Abnormal uterine and vaginal bleeding, unspecified (principal); N39.0 Urinary tract infection, site not specified; D64.9 Anemia, unspecified; J45.909 Unspecified asthma, uncomplicated; Z88.0 Allergy status to penicillin
CPT/HCPCS: 80048; 81001; 84703; 85025; 87210; 87491; 87591; 99283